=== PATIENT | male | born 1995 | race Caucasian/White ===

== ENCOUNTER 2016-10-14 18:05 | Emergency (ER) | payer OTHER ==
[~2016-10-14] VITALS: Ht 172.7 cm; Wt 79.2 kg
[2016-10-14 18:07] VITALS: BP 135/63
[2016-10-14] MEDS ORDERED: DERMABOND TOPICAL SKIN ADHESIVE TOP ONE (20:00)
== END 2016-10-14 20:06 | disposition home or self-care (01) ==
LOC: M ED 18:05
DX: S01.511A Laceration without foreign body of lip, initial encounter (principal); S01.81XA Laceration without foreign body of other part of head, initial encounter; X58.XXXA Exposure to other specified factors, initial encounter; Y92.828 Other wilderness area as the place of occurrence of the external cause; Y99.9 Unspecified external cause status; Y93.9 Activity, unspecified